=== PATIENT | female | born 1985 | race American Indian/Alaskan Native ===

== ENCOUNTER 2017-05-16 08:44 | Outpatient (CLI) | payer MEDICAID ==
--- NOTE | 2017-05-17 09:49 | Mammography Report ---
Bilateral mammogram: Periodic bilateral breast pain for 2 months. Previously palpable lump by patient but not physician and no longer palpable. Baseline mammogram. Routine view demonstrates an intermediate density fibroglandular pattern with a symmetric distribution. There is no mass and no architectural distortion. No suspicious calcifications. CAD used. Impression: Unremarkable examination. Recommendation: Clinical followup. Any additional evaluation at this time she be based on your concern. Age-appropriate mammogram followup. BI-RADS CATEGORY: 1 = Negative ACR BI-RADS MAMMOGRAPHIC CODES: 0 = Needs additional imaging evaluation; 1 = Negative; 2 = Benign; 3 = Probably benign; 4 = Suspicious; 5 = Malignant; 6 = Known biopsy-proven malignancy COMMENT: 1. Dense breast tissue, i.e., adenosis, fibrocystic changes, etc., may obscure an underlying neoplasm. 2. Approximately 10% of cancers are not detected with mammography. 3. A negative mammography report should not delay biopsy if a clinically suspicious mass is present.
== END 2017-05-16 08:45 | disposition home or self-care (01) ==
LOC: MAMMO 08:44
PROVIDERS: ATTEND Surgery
DX: N64.4 Mastodynia (principal); R22.9 Localized swelling, mass and lump, unspecified
CPT/HCPCS: 77066